=== PATIENT | female | born 1985 | race African-American/Black ===

== ENCOUNTER 2021-03-02 04:54 | Inpatient (IN) ==
[2021-03-02] MEDS ORDERED: ONDANSETRON 4 MG/2 ML VIAL IV PRN (05:05)
[2021-03-02] MEDS ORDERED: MEPERIDINE 50 MG/1 ML VIAL IV PRN (05:05)
[2021-03-02] MEDS ORDERED: BUTORPHANOL 2 MG/ML VIAL IV PRN (05:05)
[2021-03-02] MEDS: LACTATED RINGERS 1,000 ML IV SCH ×2 (05:25→15:28)
[2021-03-02] MEDS ORDERED: OXYTOCIN/LR 20 UNIT/1,000 ML BAG IV SCH (05:30)
[2021-03-02 05:44] LABS: Basophils # 0.1 10*3/uL (0.0-0.2); Basophils % 0.6 % (0.0-0.8); Eosinophils # 0.1 10*3/uL (0.0-0.87); Hematocrit 31.7 VOL% (35.7-47.0); Immature Granulocytes % 0.6 %; Immature Granulocytes Absolute 0.06 #; Lymphocytes # 3.1 10*3/uL (1.4-4.0); Lymphocytes % 29.5 % (21.3-54.2); Mean Corpuscular HGB Conc 31.5 GM/DL (32-36); Mean Corpuscular Volume 99.7 FL (87-102); Mean Platelet Volume 10.1 FL (9.6-12.0); Monocytes % 8.7 % (1.7-12.7); Neutrophils % 59.6 % (38.7-73.9); Platelet Count 242 T/CUMM (130-400); Red Blood Count 3.18 MC/CUMM (3.8-5.5); Red Cell Distribution Width 13.5 % (9.3-17.3); White Blood Count 10.5 T/CUMM (4-12)
[2021-03-02 06:15] LABS: Bilirubin,Total 0.5 MG/DL (0.2-1.0); Calcium 9.4 MG/DL (8.5-10.1); Osmolality,Calculated 269.8 MOS/KG (273-304); Potassium 3.6 MMOL/L (3.5-5.1); Total Protein 7.9 G/DL (6.4-8.2)
[2021-03-02] MEDS ORDERED: LACTATED RINGERS 1,000 ML IV ONE (07:41)
[2021-03-02] MEDS ORDERED: NALOXONE 0.4 MG/ML VIAL IV PRN (07:41)
[2021-03-02] MEDS ORDERED: CITRIC ACID/SODIUM CITRATE 30 ML UDCUP PO ONE (07:41)
[2021-03-02] MEDS ORDERED: FAMOTIDINE 20 MG/2 ML VIAL IV ONE (07:41)
[2021-03-02] MEDS ORDERED: ePHEDrine 50 MG/ML VIAL IV PRN (07:41)
[2021-03-02] MEDS ORDERED: fentaNYL 2 MCG/ROPIV 0.2% EPID 100 ML EPIDURAL SCH (08:00)
[2021-03-02 12:28] LABS: Bilirubin,Urine Negative (Negative); Blood, Urine Negative (Negative); Glucose,Urine (UA) Negative (Negative); Ketones,Urine Negative (Negative); Mucus,Urine Occasional /LPF (Occasional); Nitrite,Urine Negative (Negative); Protein,Urine Negative; RBC,Urine 1 /HPF (0-4); Squamous Epithelial Cell,Urine Occasional /HPF (0-10); Urine Appearance CLEAR (Clear); Urine Color Yellow (Yellow); Urine Specific Gravity 1.013 (1.001-1.035); Urine Urobilinogen < 2.0 EU/DL (0.2-1.0)
[2021-03-02] MEDS ORDERED: OXYTOCIN/LR 20 UNIT/1,000 ML BAG IV ONE (13:22)
[2021-03-02] MEDS ORDERED: METHYLERGONOVINE 0.2 MG/1 ML AMP ONE (13:22)
[2021-03-02] MEDS ORDERED: miSOPROStoL 200 MCG TABLET ONE (13:22)
[2021-03-02] MEDS ORDERED: TRANEXAMIC ACID 1,000 MG/10 ML VIAL ONE (13:22)
[2021-03-02] MEDS ORDERED: CARBOPROST TROMETHAMINE 250 MCG/ML AMP IM ONE (13:23)
[2021-03-02 14:05] LABS: Cord Arterial Blood HCO3 21.2 MMOL/L
[2021-03-02 14:06] LABS: Cord Venous Blood HCO3 23.5 MMOL/L; Cord Venous Blood PCO2 43.2 MMHG; Cord Venous Blood PO2 34.9
[2021-03-02] MEDS ORDERED: BENZOCAINE 20%/MENTHOL 0.5% SPRAY 56 GM CAN TOP PRN (17:10)
[2021-03-02] MEDS ORDERED: oxyCODONE/ACETAMINOPHEN 5-325 MG TABLET PO PRN ×2 (18:40)
[2021-03-02] MEDS: DOCUSATE SODIUM 100 MG CAPSULE PO PRN (20:37)
[2021-03-03 06:02] LABS: Basophils # 0.1 10*3/uL (0.0-0.2); Basophils % 0.4 % (0.0-0.8); Eosinophils # 0.2 10*3/uL (0.0-0.87); Eosinophils % 1.3 % (0.00-10.9); Hematocrit 28.7 VOL% (35.7-47.0); Hemoglobin 9.2 GM/DL (12.0-16.0); Immature Granulocytes % 0.5 %; Immature Granulocytes Absolute 0.07 #; Lymphocytes # 2.7 10*3/uL (1.4-4.0); Lymphocytes % 20.2 % (21.3-54.2); Mean Corpuscular HGB Conc 32.1 GM/DL (32-36); Mean Corpuscular Volume 97.6 FL (87-102); Mean Platelet Volume 9.4 FL (9.6-12.0); Monocytes % 7.2 % (1.7-12.7); Neutrophils % 70.4 % (38.7-73.9); Platelet Count 170 T/CUMM (130-400); Red Blood Count 2.94 MC/CUMM (3.8-5.5); Red Cell Distribution Width 13.7 % (9.3-17.3); White Blood Count 13.1 T/CUMM (4-12)
[2021-03-03] MEDS: IBUPROFEN 800 MG TABLET PO PRN (08:20)
[2021-03-03] MEDS: DOCUSATE SODIUM 100 MG CAPSULE PO PRN (08:20)
[2021-03-03] MEDS ORDERED: HYDROCORTISONE 2.5% RECTAL CREAM 30 GM TUBE TOP PRN (08:44)
[2021-03-03] MEDS ORDERED: BENZOCAINE 20%/MENTHOL 0.5% SPRAY 56 GM CAN TOP PRN (08:44)
[2021-03-03] MEDS ORDERED: LANOLIN 50% CREAM 0.3 OZ TUBE TOP PRN (08:44)
[2021-03-03] MEDS ORDERED: ONDANSETRON 4 MG/2 ML VIAL IV PRN (08:44)
[2021-03-03] MEDS ORDERED: IBUPROFEN 800 MG TABLET PO PRN (08:44)
[2021-03-03] MEDS ORDERED: MEASLES/MUMPS/RUBELLA VACCINE 0.5 ML VIAL SUBCUT ONE (08:44)
[2021-03-03] MEDS ORDERED: ACETAMINOPHEN 325 MG TABLET PO PRN (08:44)
[2021-03-03] MEDS ORDERED: oxyCODONE/ACETAMINOPHEN 5-325 MG TABLET PO PRN ×2 (08:44)
[2021-03-03] MEDS ORDERED: OXYTOCIN/LR 20 UNIT/1,000 ML BAG IV ONE (08:44)
[2021-03-03] MEDS ORDERED: BISACODYL 10 MG SUPP RECTAL PRN (08:44)
[2021-03-03] MEDS ORDERED: RHO(D) IMMUNE GLOBULIN 300 MCG SYRINGE IM ONE (08:44)
[2021-03-03] MEDS ORDERED: WITCH HAZEL PADS 100/JAR TOP PRN (08:44)
[2021-03-03] MEDS ORDERED: DIPH/TET/ACEL PERT BOOSTER VACCINE 0.5 ML VIAL IM ONE (08:44)
[2021-03-03] MEDS: DOCUSATE SODIUM 100 MG CAPSULE PO SCH ×2 (09:40→20:20)
[2021-03-03] MEDS: MULTIVITAMIN (PRENATAL) TABLET PO SCH (12:15)
[2021-03-04 05:18] LABS: Basophils # 0.1 10*3/uL (0.0-0.2); Basophils % 0.7 % (0.0-0.8); Eosinophils # 0.3 10*3/uL (0.0-0.87); Hematocrit 27.8 VOL% (35.7-47.0); Hemoglobin 8.9 GM/DL (12.0-16.0); Immature Granulocytes % 0.6 %; Immature Granulocytes Absolute 0.06 #; Lymphocytes # 3.6 10*3/uL (1.4-4.0); Lymphocytes % 33.8 % (21.3-54.2); Mean Corpuscular Volume 98.6 FL (87-102); Mean Platelet Volume 10.1 FL (9.6-12.0); Neutrophils % 53.9 % (38.7-73.9); Platelet Count 186 T/CUMM (130-400); Red Blood Count 2.82 MC/CUMM (3.8-5.5); Red Cell Distribution Width 13.6 % (9.3-17.3); White Blood Count 10.5 T/CUMM (4-12)
[2021-03-04 06:13] LABS: Lymphocytes 25 % (20-55); Platelet Estimate Normal; Segmented Neutrophils 69 % (50-85); Total Cells Counted 100
[2021-03-04] MEDS: DOCUSATE SODIUM 100 MG CAPSULE PO SCH (08:08)
[2021-03-04] MEDS: IBUPROFEN 800 MG TABLET PO PRN (08:10)
[2021-03-04] MEDS: MULTIVITAMIN (PRENATAL) TABLET PO SCH (08:10)
[2021-03-04] MEDS ORDERED: FERROUS SULFATE 325 MG TABLET PO SCH (09:00)
[2021-03-04 11:10] VITALS: BP 126/64
== END 2021-03-04 11:12 | disposition home or self-care (01) | DRG 807 ==
LOC: N.LD 04:54 → N.OB 16:46
PROVIDERS: ADMIT Specialist; ATTEND Specialist